=== PATIENT | male | born 1935 | race Caucasian/White ===

== ENCOUNTER 2019-04-16 22:42 | Inpatient (IN) ==
[2019-04-16] MEDS ORDERED: FUROSEMIDE 40 MG/4 ML VIAL IV STA (22:53)
[2019-04-16] MEDS ORDERED: ALBUTEROL/IPRATROPIUM 3 ML NEB RESP TX STA (22:53)
[2019-04-16 23:09] LABS: Basophils % 0.3 % (0.0-0.8); Eosinophils # 0.1 10*3/uL (0.0-0.87); Eosinophils % 1.1 % (0.00-10.9); Hematocrit 34.5 VOL% (42.0-52.0); Hemoglobin 11.7 GM/DL (14.0-18.0); Immature Granulocytes % 0.4 %; Immature Granulocytes Absolute 0.04 #; Lymphocytes # 2.2 10*3/uL (1.4-4.0); Lymphocytes % 22.4 % (21.2-54.2); Mean Corpuscular HGB Conc 33.9 GM/DL (32-36); Mean Corpuscular Volume 91.3 FL (87-102); Mean Platelet Volume 10.3 FL (9.6-12.0); Neutrophils % 68.8 % (38.7-73.9); Platelet Count 134 T/CUMM (130-400); Red Blood Count 3.78 MC/CUMM (3.8-5.5); White Blood Count 9.6 T/CUMM (4-12)
[2019-04-16] MEDS: ALBUTEROL 2.5 MG/3 ML NEB RESP TX SCH ×3 (23:12→23:55)
[2019-04-16 23:35] LABS: Albumin 3.5 G/DL (3.4-5.0); Bilirubin,Total 0.4 MG/DL (0.2-1.0); Calcium 8.5 MG/DL (8.5-10.1); Osmolality,Calculated 283.7 MOS/KG (273-304); Total Protein 6.4 G/DL (6.4-8.3)
[2019-04-17] MEDS ORDERED: ONDANSETRON 4 MG/2 ML VIAL IV PRN (02:13)
[2019-04-17] MEDS ORDERED: hydrALAZINE 20 MG/1 ML VIAL IV PRN (02:13)
[2019-04-17] MEDS ORDERED: guaiFENesin/DM ER 600-30 MG TABLET PO PRN (02:13)
[2019-04-17] MEDS ORDERED: MORPHINE 4 MG/1 ML VIAL IV PRN (02:13)
[2019-04-17] MEDS ORDERED: NICOTINE 21 MG/24 HR PATCH TRANSDERM PRN (02:13)
[2019-04-17] MEDS ORDERED: diphenhydrAMINE CAP 25 MG CAPSULE PO PRN (02:13)
[2019-04-17] MEDS ORDERED: ACETAMINOPHEN 325 MG TABLET PO PRN (02:13)
[2019-04-17 02:49] LABS: Apearance,Urine CLEAR (Clear); Bacteria,Urine Occasional /HPF (Few); Bilirubin,Urine Negative (Negative); Blood, Urine Negative (Negative); Glucose,Urine (UA) Negative (Negative); Ketones,Urine Negative (Negative); Nitrite,Urine Negative (Negative); Protein,Urine Negative; RBC,Urine <1 /HPF (0-4); Urine Color Colorless (Yellow); Urine Specific Gravity 1.004 (1.001-1.035); Urine Urobilinogen < 2.0 EU/DL (0.2-1.0); WBC,Urine <1 /HPF (0-6)
[2019-04-17 03:09] LABS: Risk Ratio 1.81; VLDL CHOLESTEROL 8.6 MG/DL
[2019-04-17] MEDS: ALBUTEROL/IPRATROPIUM 3 ML NEB RESP TX SCH ×3 (07:58→19:15)
[2019-04-17] MEDS ORDERED: carvediloL 6.25 MG TABLET PO SCH (08:00)
[2019-04-17] MEDS: RANITIDINE 150 MG TABLET PO SCH (10:04)
[2019-04-17] MEDS: cilostazoL 100 MG TABLET PO SCH ×2 (10:04→21:18)
[2019-04-17] MEDS: SPIRONOLACTONE 25 MG TABLET PO SCH (10:04)
[2019-04-17] MEDS: rOPINIRole 1 MG TABLET PO SCH (10:04)
[2019-04-17] MEDS: SIMVASTATIN 10 MG TABLET PO SCH (10:05)
[2019-04-17] MEDS: buPROPion 75 MG TABLET PO SCH ×2 (10:05→21:18)
[2019-04-17] MEDS: predniSONE 5 MG TABLET PO SCH (10:08)
[2019-04-17] MEDS: CLOPIDOGREL 75 MG TABLET PO SCH (10:08)
[2019-04-17] MEDS: FUROSEMIDE 40 MG/4 ML VIAL IV SCH ×2 (10:09→15:52)
[2019-04-17] MEDS ORDERED: FUROSEMIDE 20 MG/2 ML VIAL ONE (15:36)
[2019-04-17] MEDS ORDERED: carvediloL 3.125 MG TABLET PO SCH (21:00)
[2019-04-18] MEDS: ALBUTEROL/IPRATROPIUM 3 ML NEB RESP TX SCH ×4 (00:44→21:26)
[2019-04-18 07:46] LABS: Basophils % 0.5 % (0.0-0.8); Eosinophils # 0.1 10*3/uL (0.0-0.87); Eosinophils % 1.5 % (0.00-10.9); Hematocrit 34.8 VOL% (42.0-52.0); Hemoglobin 11.9 GM/DL (14.0-18.0); Immature Granulocytes % 0.2 %; Immature Granulocytes Absolute 0.02 #; Lymphocytes # 2.3 10*3/uL (1.4-4.0); Lymphocytes % 28.7 % (21.2-54.2); Mean Corpuscular HGB Conc 34.2 GM/DL (32-36); Mean Corpuscular Volume 89.7 FL (87-102); Mean Platelet Volume 10.4 FL (9.6-12.0); Monocytes % 10.2 % (1.7-12.7); Neutrophils % 58.9 % (38.7-73.9); Platelet Count 139 T/CUMM (130-400); Red Blood Count 3.88 MC/CUMM (3.8-5.5)
[2019-04-18 08:12] LABS: Calcium 8.7 MG/DL (8.5-10.1); Osmolality,Calculated 282.5 MOS/KG (273-304)
[2019-04-18] MEDS: predniSONE 5 MG TABLET PO SCH (09:26)
[2019-04-18] MEDS: RANITIDINE 150 MG TABLET PO SCH (09:26)
[2019-04-18] MEDS: rOPINIRole 1 MG TABLET PO SCH (09:26)
[2019-04-18] MEDS: cilostazoL 100 MG TABLET PO SCH ×2 (09:26→20:37)
[2019-04-18] MEDS: SIMVASTATIN 10 MG TABLET PO SCH (09:28)
[2019-04-18] MEDS: CLOPIDOGREL 75 MG TABLET PO SCH (09:28)
[2019-04-18] MEDS: SPIRONOLACTONE 25 MG TABLET PO SCH (09:30)
[2019-04-18] MEDS: FUROSEMIDE 40 MG/4 ML VIAL IV SCH ×2 (09:30→16:19)
[2019-04-18] MEDS: buPROPion 75 MG TABLET PO SCH ×2 (09:30→20:37)
[2019-04-19] MEDS: ALBUTEROL/IPRATROPIUM 3 ML NEB RESP TX SCH ×2 (01:37→07:10)
[2019-04-19 05:52] LABS: Basophils # 0.1 10*3/uL (0.0-0.2); Basophils % 0.6 % (0.0-0.8); Eosinophils # 0.1 10*3/uL (0.0-0.87); Eosinophils % 1.5 % (0.00-10.9); Hematocrit 35.3 VOL% (42.0-52.0); Hemoglobin 11.8 GM/DL (14.0-18.0); Immature Granulocytes % 0.2 %; Immature Granulocytes Absolute 0.02 #; Lymphocytes # 2.5 10*3/uL (1.4-4.0); Mean Corpuscular HGB Conc 33.4 GM/DL (32-36); Mean Platelet Volume 10.8 FL (9.6-12.0); Monocytes % 9.6 % (1.7-12.7); Neutrophils % 57.1 % (38.7-73.9); Platelet Count 133 T/CUMM (130-400); Red Blood Count 3.88 MC/CUMM (3.8-5.5); Red Cell Distribution Width 13.7 % (9.3-17.3); White Blood Count 8.1 T/CUMM (4-12)
[2019-04-19 06:05] LABS: Calcium 8.7 MG/DL (8.5-10.1); Osmolality,Calculated 283.5 MOS/KG (273-304)
[2019-04-19] MEDS: predniSONE 5 MG TABLET PO SCH (09:10)
[2019-04-19] MEDS: FUROSEMIDE 40 MG/4 ML VIAL IV SCH (09:10)
[2019-04-19] MEDS: SPIRONOLACTONE 25 MG TABLET PO SCH (09:11)
[2019-04-19] MEDS: CLOPIDOGREL 75 MG TABLET PO SCH (09:12)
[2019-04-19] MEDS: buPROPion 75 MG TABLET PO SCH (09:12)
[2019-04-19] MEDS: cilostazoL 100 MG TABLET PO SCH (09:12)
[2019-04-19] MEDS: rOPINIRole 1 MG TABLET PO SCH (09:12)
[2019-04-19] MEDS: SIMVASTATIN 10 MG TABLET PO SCH (09:13)
[2019-04-19] MEDS: RANITIDINE 150 MG TABLET PO SCH (09:13)
[2019-04-19 11:38] VITALS: BP 111/67
[2019-04-19] MEDS ORDERED: FUROSEMIDE 40 MG TABLET PO SCH (16:00)
== END 2019-04-19 13:02 | disposition home health service (06) | DRG 291 ==
LOC: EDUNIT# → EDBD → N.ED 22:42 → N.EDINP 04-17 02:13 → N.TELEN 04-17 03:15
PROVIDERS: ADMIT Hospitalist; ATTEND Hospitalist

== ENCOUNTER 2019-12-06 19:28 | Inpatient (IN) ==
[2019-12-06 20:44] LABS: Basophils % 0.1 % (0.0-0.8); Eosinophils % 0.2 % (0.00-10.9); Hemoglobin 11.3 GM/DL (14.0-18.0); Immature Granulocytes % 0.5 %; Immature Granulocytes Absolute 0.08 #; Lymphocytes # 1.5 10*3/uL (1.4-4.0); Lymphocytes % 9.2 % (21.2-54.2); Mean Corpuscular HGB Conc 33.2 GM/DL (32-36); Mean Corpuscular Volume 93.2 FL (87-102); Mean Platelet Volume 11.2 FL (9.6-12.0); Monocytes % 6.3 % (1.7-12.7); Neutrophils % 83.7 % (38.7-73.9); Platelet Count 118 T/CUMM (130-400); Red Blood Count 3.65 MC/CUMM (3.8-5.5); Red Cell Distribution Width 14.6 % (9.3-17.3)
[2019-12-06 20:51] LABS: INR 1.1; PT Patient Result 12.2 SECS (9.8-11.9); Partial Thromboplastin Time 22.2 SECS (23.9-33.8)
[2019-12-06 20:58] LABS: Alanine Aminotransferase 51 U/L (16-61); Albumin 3.7 G/DL (3.4-5.0); Alkaline Phosphatase 64 U/L (45-117); Aspartate Amino Transferase 53 U/L (0-37); Blood Urea Nitrogen 28 MG/DL (7-18); Calcium 8.9 MG/DL (8.5-10.1); Estimated Glom Filtration Rate 32 ML/MIN; Glucose 144 MG/DL (74-106); Osmolality,Calculated 287.4 MOS/KG (273-304); Total Protein 6.7 G/DL (6.4-8.3)
[2019-12-06 20:59] LABS: Troponin I 0.066 NG/ML (0.00-0.045)
[2019-12-06] MEDS ORDERED: SODIUM CHLORIDE 0.9% 1,000 ML IV STA (21:56)
[2019-12-06] MEDS ORDERED: cefTRIAXone 1,000 MG in SODIUM CHLORIDE 0.9% 100 ML IV STA (21:56)
[2019-12-06 22:24] LABS: Ferritin 154.1 ng/ml (26-388)
[2019-12-06] MEDS ORDERED: ONDANSETRON 4 MG/2 ML VIAL IV PRN (22:50)
[2019-12-06] MEDS ORDERED: ACETAMINOPHEN 325 MG TABLET PO PRN (22:50)
[2019-12-06] MEDS ORDERED: MAGNESIUM SULF RIDER 2 GM in PREMIX 1 EACH IV PRN (22:50)
[2019-12-06] MEDS ORDERED: GLUCAGON 1 MG VIAL IM PRN (22:50)
[2019-12-06] MEDS ORDERED: MAGNESIUM SULF RIDER 4 GM in PREMIX 1 EACH IV PRN (22:50)
[2019-12-06] MEDS ORDERED: DEXTROSE 50% 25 GM/50 ML VIAL IV PRN (22:50)
[2019-12-06] MEDS ORDERED: ENOXAPARIN 60 MG/0.6 ML SYRINGE SUBCUT SCH (23:00)
[2019-12-06] MEDS ORDERED: AZITHROMYCIN INJ 500 MG in SODIUM CHLORIDE 0.9% 250 ML IV SCH (23:00)
[2019-12-06] MEDS ORDERED: MELOXICAM 7.5 MG TABLET PO PRN (23:14)
[2019-12-07] MEDS: ALBUTEROL/IPRATROPIUM 3 ML NEB RESP TX SCH ×5 (00:15→23:35)
[2019-12-07] MEDS ORDERED: MORPHINE 4 MG/1 ML VIAL IV PRN (00:40)
[2019-12-07 07:27] LABS: Basophils % 0.3 % (0.0-0.8); Eosinophils # 0.1 10*3/uL (0.0-0.87); Eosinophils % 0.8 % (0.00-10.9); Hematocrit 33.3 VOL% (42.0-52.0); Hemoglobin 11.1 GM/DL (14.0-18.0); Immature Granulocytes % 0.4 %; Immature Granulocytes Absolute 0.05 #; Lymphocytes # 2.4 10*3/uL (1.4-4.0); Lymphocytes % 18.5 % (21.2-54.2); Mean Corpuscular HGB Conc 33.3 GM/DL (32-36); Mean Corpuscular Volume 92.5 FL (87-102); Mean Platelet Volume 10.6 FL (9.6-12.0); Monocytes % 8.1 % (1.7-12.7); Neutrophils % 71.9 % (38.7-73.9); Platelet Count 128 T/CUMM (130-400); Red Cell Distribution Width 14.6 % (9.3-17.3); White Blood Count 13.1 T/CUMM (4-12)
[2019-12-07 07:42] LABS: Albumin 3.3 G/DL (3.4-5.0); Bilirubin,Total 0.4 MG/DL (0.2-1.0); Calcium 8.4 MG/DL (8.5-10.1); Osmolality,Calculated 288.1 MOS/KG (273-304); Total Protein 6.5 G/DL (6.4-8.3)
[2019-12-07 08:03] LABS: Anisocytosis Slight; Platelet Estimate Adequate
[2019-12-07 08:04] LABS: Macrocytosis Slight
[2019-12-07] MEDS: carvediloL 6.25 MG TABLET PO SCH ×2 (08:52→16:11)
[2019-12-07] MEDS: FUROSEMIDE 40 MG/4 ML VIAL IV SCH ×2 (08:53→16:11)
[2019-12-07] MEDS: MULTIVITAMIN (CENTRUM) TABLET PO SCH (08:53)
[2019-12-07] MEDS: PANTOPRAZOLE 40 MG TABLET PO SCH (08:54)
[2019-12-07] MEDS: buPROPion 100 MG TABLET PO SCH ×2 (08:54→20:48)
[2019-12-07] MEDS: CYANOCOBALAMIN 500 MCG TABLET PO SCH (08:55)
[2019-12-07] MEDS: SACUBITRIL/VALSARTAN 49-51 MG TABLET PO SCH ×2 (08:55→20:48)
[2019-12-07] MEDS: DICYCLOMINE 20 MG TABLET PO SCH (08:56)
[2019-12-07] MEDS: predniSONE 5 MG TABLET PO SCH (08:56)
[2019-12-07] MEDS: ASPIRIN EC 81 MG TABLET PO SCH (08:56)
[2019-12-07] MEDS ORDERED: ENOXAPARIN 60 MG/0.6 ML SYRINGE SUBCUT SCH ×2 (09:00→21:00)
[2019-12-07] MEDS: AZITHROMYCIN 250 MG TABLET PO SCH (09:53)
[2019-12-07] MEDS: cefTRIAXone 1,000 MG in SYRINGE 1 EACH IV SCH (09:54)
[2019-12-07] MEDS ORDERED: METOPROLOL TARTRATE 5 MG/5 ML VIAL IV ONE (11:00)
[2019-12-07] MEDS ORDERED: SIMVASTATIN 10 MG TABLET PO SCH (21:00)
[2019-12-07] MEDS ORDERED: rOPINIRole 1 MG TABLET PO SCH (21:00)
[2019-12-07] MEDS ORDERED: CLOPIDOGREL 75 MG TABLET PO SCH (21:00)
[2019-12-07] MEDS ORDERED: ALBUTEROL/IPRATROPIUM 3 ML NEB RESP TX PRN (23:20)
[2019-12-08 05:39] LABS: Basophils # 0.1 10*3/uL (0.0-0.2); Basophils % 0.5 % (0.0-0.8); Eosinophils # 0.2 10*3/uL (0.0-0.87); Eosinophils % 1.5 % (0.00-10.9); Hematocrit 32.9 VOL% (42.0-52.0); Hemoglobin 10.8 GM/DL (14.0-18.0); Immature Granulocytes % 0.4 %; Immature Granulocytes Absolute 0.04 #; Lymphocytes # 2.3 10*3/uL (1.4-4.0); Lymphocytes % 22.8 % (21.2-54.2); Mean Corpuscular HGB Conc 32.8 GM/DL (32-36); Mean Corpuscular Volume 92.7 FL (87-102); Mean Platelet Volume 10.8 FL (9.6-12.0); Monocytes % 9.6 % (1.7-12.7); Neutrophils % 65.2 % (38.7-73.9); Platelet Count 107 T/CUMM (130-400); Red Blood Count 3.55 MC/CUMM (3.8-5.5); Red Cell Distribution Width 14.2 % (9.3-17.3); White Blood Count 9.9 T/CUMM (4-12)
[2019-12-08 06:02] LABS: Eosinophils 6 % (0-10); Hypochromasia 1+; Lymphocytes 20 % (20-55); Ovalocytes Slight; Segmented Neutrophils 69 % (50-85); Total Cells Counted 100
[2019-12-08 06:03] LABS: Macrocytosis Slight
[2019-12-08] MEDS: ALBUTEROL/IPRATROPIUM 3 ML NEB RESP TX SCH (07:20)
[2019-12-08 07:33] LABS: Calcium 8.7 MG/DL (8.5-10.1)
[2019-12-08 07:34] LABS: Osmolality,Calculated 286.3 MOS/KG (273-304)
[2019-12-08] MEDS: CYANOCOBALAMIN 500 MCG TABLET PO SCH (08:45)
[2019-12-08] MEDS: SACUBITRIL/VALSARTAN 49-51 MG TABLET PO SCH (08:45)
[2019-12-08] MEDS: AZITHROMYCIN 250 MG TABLET PO SCH (08:45)
[2019-12-08] MEDS: cefTRIAXone 1,000 MG in SYRINGE 1 EACH IV SCH (08:46)
[2019-12-08] MEDS: MULTIVITAMIN (CENTRUM) TABLET PO SCH (08:46)
[2019-12-08] MEDS: predniSONE 5 MG TABLET PO SCH (08:46)
[2019-12-08] MEDS: ASPIRIN EC 81 MG TABLET PO SCH (08:46)
[2019-12-08] MEDS: FUROSEMIDE 40 MG/4 ML VIAL IV SCH (08:46)
[2019-12-08] MEDS: PANTOPRAZOLE 40 MG TABLET PO SCH (08:46)
[2019-12-08] MEDS: carvediloL 6.25 MG TABLET PO SCH (08:47)
[2019-12-08] MEDS: DICYCLOMINE 20 MG TABLET PO SCH (08:50)
[2019-12-08] MEDS ORDERED: ENOXAPARIN 40 MG/0.4 ML SYRINGE SUBCUT SCH ×2 (09:00)
[2019-12-08 11:33] VITALS: BP 114/49
[2019-12-08] MEDS: buPROPion 100 MG TABLET PO SCH (11:38)
== END 2019-12-08 13:38 | disposition home health service (06) | DRG 871 ==
LOC: EDBD → EDUNIT# → N.ED 19:28 → SUATTDRO 22:50 → N.EDINP 22:50 → N.5E 23:25
PROVIDERS: ADMIT Internal Medicine; ATTEND Internal Medicine

== ENCOUNTER 2020-06-10 10:48 | Observation (INO) ==
[2020-06-10] MEDS ORDERED: methylPREDNISolone SOD SUC 125 MG/2 ML VIAL IV STA (11:22)
[2020-06-10 11:50] LABS: Basophils % 0.3 % (0.0-0.8); Eosinophils # 0.2 10*3/uL (0.0-0.87); Eosinophils % 1.6 % (0.00-10.9); Hematocrit 39.8 VOL% (42.0-52.0); Hemoglobin 12.9 GM/DL (14.0-18.0); Immature Granulocytes % 0.5 %; Immature Granulocytes Absolute 0.05 #; Lymphocytes # 1.2 10*3/uL (1.4-4.0); Lymphocytes % 11.7 % (21.2-54.2); Mean Corpuscular HGB Conc 32.4 GM/DL (32-36); Mean Corpuscular Volume 90.7 FL (87-102); Mean Platelet Volume 10.4 FL (9.6-12.0); Monocytes % 4.4 % (1.7-12.7); Neutrophils % 81.5 % (38.7-73.9); Platelet Count 141 T/CUMM (130-400); Red Blood Count 4.39 MC/CUMM (3.8-5.5); Red Cell Distribution Width 14.4 % (9.3-17.3); White Blood Count 10.2 T/CUMM (4-12)
[2020-06-10 12:08] LABS: ABG Base Excess 3.7 MMOL/L (-2.5-2.5); ABG HCO3 30.3 MMOL/L (20-26); ABG Oxygen Saturation 27.4 % (95-100); ABG PCO2 54.9 MM HG (35-48)
[2020-06-10 12:09] LABS: ABG PO2 22.8 MM HG (80-95)
[2020-06-10 12:11] LABS: Albumin 3.9 G/DL (3.4-5.0); Bilirubin,Total 0.8 MG/DL (0.2-1.0); Calcium 8.4 MG/DL (8.5-10.1); Osmolality,Calculated 292.3 MOS/KG (273-304); Potassium 4.4 MMOL/L (3.5-5.1); Total Protein 7.3 G/DL (6.4-8.2)
[2020-06-10 12:22] LABS: Hypochromasia Slight; Platelet Estimate Adequate
[2020-06-10] MEDS ORDERED: DEXTROSE 50% 25 GM/50 ML VIAL IV PRN (14:36)
[2020-06-10] MEDS ORDERED: ONDANSETRON 4 MG/2 ML VIAL IV PRN (14:36)
[2020-06-10] MEDS ORDERED: GLUCAGON 1 MG VIAL IM PRN (14:36)
[2020-06-10] MEDS ORDERED: DOCUSATE SODIUM 100 MG CAPSULE PO PRN (14:36)
[2020-06-10] MEDS: ENOXAPARIN 30 MG/0.3 ML SYRINGE SUBCUT SCH (17:43)
[2020-06-10] MEDS: FUROSEMIDE 40 MG/4 ML VIAL IV SCH (17:44)
[2020-06-10] MEDS: methylPREDNISolone SOD SUC 40 MG/1 ML VIAL IV SCH (17:48)
[2020-06-10] MEDS: ALBUTEROL/IPRATROPIUM 3 ML NEB RESP TX SCH (19:25)
[2020-06-10] MEDS: carvediloL 6.25 MG TABLET PO SCH (20:16)
[2020-06-10] MEDS: buPROPion 75 MG TABLET PO SCH (20:16)
[2020-06-10] MEDS ORDERED: rOPINIRole 1 MG TABLET PO SCH (21:00)
[2020-06-10] MEDS ORDERED: SIMVASTATIN 10 MG TABLET PO SCH (21:00)
[2020-06-10] MEDS ORDERED: CLOPIDOGREL 75 MG TABLET PO SCH (21:00)
[2020-06-10] MEDS ORDERED: clonazePAM 0.5 MG TABLET PO SCH (21:00)
[2020-06-11] MEDS: FUROSEMIDE 40 MG/4 ML VIAL IV SCH ×3 (00:07→16:13)
[2020-06-11] MEDS: methylPREDNISolone SOD SUC 40 MG/1 ML VIAL IV SCH ×3 (00:08→16:13)
[2020-06-11] MEDS: ALBUTEROL/IPRATROPIUM 3 ML NEB RESP TX SCH ×3 (00:33→13:02)
[2020-06-11 05:54] LABS: Hemoglobin 11.1 GM/DL (14.0-18.0); Immature Granulocytes % 0.8 %; Immature Granulocytes Absolute 0.04 #; Lymphocytes # 0.8 10*3/uL (1.4-4.0); Lymphocytes % 15.4 % (21.2-54.2); Mean Corpuscular HGB Conc 32.6 GM/DL (32-36); Mean Corpuscular Volume 89.2 FL (87-102); Mean Platelet Volume 11.3 FL (9.6-12.0); Monocytes % 0.8 % (1.7-12.7); Platelet Count 117 T/CUMM (130-400); Red Blood Count 3.81 MC/CUMM (3.8-5.5); Red Cell Distribution Width 14.1 % (9.3-17.3); White Blood Count 4.9 T/CUMM (4-12)
[2020-06-11 06:03] LABS: Calcium 8.4 MG/DL (8.5-10.1); Osmolality,Calculated 287.7 MOS/KG (273-304); Potassium 3.4 MMOL/L (3.5-5.1)
[2020-06-11] MEDS ORDERED: POTASSIUM CHLORIDE 20 MEQ TABLET PO PRN (07:19)
[2020-06-11] MEDS: carvediloL 6.25 MG TABLET PO SCH (08:22)
[2020-06-11] MEDS: buPROPion 75 MG TABLET PO SCH (08:23)
[2020-06-11] MEDS ORDERED: SACUBITRIL/VALSARTAN 49-51 MG TABLET PO SCH (09:00)
[2020-06-11] MEDS ORDERED: ASPIRIN EC 81 MG TABLET PO SCH (09:00)
[2020-06-11] MEDS ORDERED: DICYCLOMINE 10 MG CAPSULE PO SCH (09:00)
[2020-06-11] MEDS ORDERED: PANTOPRAZOLE 40 MG TABLET PO SCH (09:00)
[2020-06-11] MEDS ORDERED: CYANOCOBALAMIN 500 MCG TABLET PO SCH (09:00)
[2020-06-11] MEDS: POTASSIUM CHLORIDE 20 MEQ TABLET PO PRN ×2 (10:51→13:18)
[2020-06-11] MEDS: ENOXAPARIN 30 MG/0.3 ML SYRINGE SUBCUT SCH (15:26)
[2020-06-11 16:49] VITALS: BP 107/51
== END 2020-06-11 17:45 | disposition home or self-care (01) ==
LOC: EDBD → EDUNIT# → N.EDINP 10:48 → N.ED 10:48 → N.TELES 18:15
PROVIDERS: ADMIT Hospitalist; ATTEND Hospitalist

== ENCOUNTER 2020-12-21 22:52 | Observation (INO) ==
[2020-12-21 23:30] LABS: Basophils % 0.3 % (0.0-0.8); Eosinophils # 0.1 10*3/uL (0.0-0.87); Eosinophils % 0.8 % (0.00-10.9); Hematocrit 36.2 VOL% (42.0-52.0); Hemoglobin 11.9 GM/DL (14.0-18.0); Immature Granulocytes % 0.4 %; Immature Granulocytes Absolute 0.05 #; Lymphocytes # 1.2 10*3/uL (1.4-4.0); Lymphocytes % 9.7 % (21.2-54.2); Mean Corpuscular HGB Conc 32.9 GM/DL (32-36); Mean Corpuscular Volume 90.5 FL (87-102); Mean Platelet Volume 9.5 FL (9.6-12.0); Monocytes % 6.5 % (1.7-12.7); Neutrophils % 82.3 % (38.7-73.9); Platelet Count 146 T/CUMM (130-400); Red Cell Distribution Width 14.2 % (9.3-17.3); White Blood Count 11.9 T/CUMM (4-12)
[2020-12-21 23:48] LABS: Albumin 3.3 G/DL (3.4-5.0); Bilirubin,Total 0.6 MG/DL (0.20-1.00); Calcium 8.5 MG/DL (8.5-10.1); Osmolality,Calculated 286.5 MOS/KG (273-304); Potassium 3.2 MMOL/L (3.5-5.1); Total Protein 6.8 G/DL (6.4-8.2)
[2020-12-21] MEDS ORDERED: FUROSEMIDE 40 MG/4 ML VIAL IV STA ×2 (23:59)
[2020-12-22 00:04] LABS: INR 1.1; PT Patient Result 12.2 SECS (10.5-12.0)
[2020-12-22] MEDS ORDERED: POTASSIUM CHLORIDE 20 MEQ TABLET PO STA (00:20)
[2020-12-22] MEDS ORDERED: POTASSIUM CHLORIDE 20 MEQ TABLET PO ONE (00:21)
[2020-12-22] MEDS ORDERED: FUROSEMIDE 40 MG/4 ML VIAL IV STA (00:21)
[2020-12-22] MEDS ORDERED: DEXTROSE 50% 25 GM/50 ML VIAL IV PRN (01:00)
[2020-12-22] MEDS ORDERED: GLUCAGON 1 MG VIAL IM PRN (01:00)
[2020-12-22] MEDS ORDERED: ACETAMINOPHEN 325 MG TABLET PO PRN (01:02)
[2020-12-22] MEDS ORDERED: ONDANSETRON 4 MG/2 ML VIAL IV PRN (01:02)
[2020-12-22] MEDS ORDERED: NICOTINE 21 MG/24 HR PATCH TRANSDERM PRN (01:02)
[2020-12-22] MEDS ORDERED: SIMETHICONE CHEW 125 MG TABLET PO PRN (01:02)
[2020-12-22] MEDS ORDERED: guaiFENesin/DM ER 600-30 MG TABLET PO PRN (01:02)
[2020-12-22] MEDS ORDERED: MAGNESIUM SULF RIDER 4 GM/100 ML PREMIX IV PRN (01:14)
[2020-12-22] MEDS ORDERED: MAGNESIUM SULF RIDER 2 GM/50 ML PREMIX IV PRN (01:14)
[2020-12-22] MEDS ORDERED: POTASSIUM CHLORIDE RIDER 10 MEQ/100 ML PREMIX IV PRN (01:14)
[2020-12-22] MEDS ORDERED: methylPREDNISolone SOD SUC 125 MG/2 ML VIAL IV SCH (02:30)
[2020-12-22] MEDS ORDERED: PNEUMOCOCCAL VACCINE (13 VALENT) 0.5 ML SYRINGE IM ONE (03:06)
[2020-12-22 03:17] LABS: Basophils % 0.3 % (0.0-0.8); Eosinophils % 0.4 % (0.00-10.9); Hematocrit 35.6 VOL% (42.0-52.0); Hemoglobin 11.6 GM/DL (14.0-18.0); Immature Granulocytes % 0.4 %; Immature Granulocytes Absolute 0.04 #; Lymphocytes # 1.2 10*3/uL (1.4-4.0); Lymphocytes % 12.1 % (21.2-54.2); Mean Corpuscular HGB Conc 32.6 GM/DL (32-36); Mean Corpuscular Volume 91.3 FL (87-102); Mean Platelet Volume 9.3 FL (9.6-12.0); Monocytes % 6.6 % (1.7-12.7); Neutrophils % 80.2 % (38.7-73.9); Platelet Count 143 T/CUMM (130-400); Red Cell Distribution Width 14.3 % (9.3-17.3); White Blood Count 10.2 T/CUMM (4-12)
[2020-12-22 04:14] LABS: Calcium 8.7 MG/DL (8.5-10.1); Osmolality,Calculated 286.4 MOS/KG (273-304); Potassium 3.7 MMOL/L (3.5-5.1)
[2020-12-22] MEDS ORDERED: ALBUTEROL 2.5 MG/3 ML NEB RESP TX SCH (07:00)
[2020-12-22] MEDS: ALBUTEROL/IPRATROPIUM 3 ML NEB RESP TX SCH ×3 (08:30→20:04)
[2020-12-22] MEDS: FUROSEMIDE 40 MG/4 ML VIAL IV SCH ×2 (08:36→15:40)
[2020-12-22] MEDS: PANTOPRAZOLE 40 MG TABLET PO SCH (08:37)
[2020-12-22] MEDS: ASPIRIN EC 81 MG TABLET PO SCH (08:37)
[2020-12-22] MEDS: predniSONE 10 MG TABLET PO SCH ×2 (09:40→20:13)
[2020-12-22] MEDS: DOCUSATE SODIUM 100 MG CAPSULE PO SCH ×2 (09:40→20:12)
[2020-12-22] MEDS: carvediloL 6.25 MG TABLET PO SCH ×2 (09:41→20:12)
[2020-12-22] MEDS: SACUBITRIL/VALSARTAN 49-51 MG TABLET PO SCH (09:41)
[2020-12-22] MEDS ORDERED: LEVOFLOXACIN INJ 500 MG/100 ML PREMIX IV ONE (13:00)
[2020-12-22] MEDS: CLOPIDOGREL 75 MG TABLET PO SCH (20:12)
[2020-12-22] MEDS: clonazePAM 0.5 MG TABLET PO SCH (20:12)
[2020-12-22] MEDS: SIMVASTATIN 10 MG TABLET PO SCH (20:12)
[2020-12-23] MEDS: ALBUTEROL/IPRATROPIUM 3 ML NEB RESP TX SCH ×2 (01:39→07:00)
[2020-12-23 05:08] LABS: Basophils % 0.4 % (0.0-0.8); Eosinophils # 0.1 10*3/uL (0.0-0.87); Eosinophils % 1.2 % (0.00-10.9); Hemoglobin 11.3 GM/DL (14.0-18.0); Immature Granulocytes % 0.4 %; Immature Granulocytes Absolute 0.03 #; Lymphocytes # 0.9 10*3/uL (1.4-4.0); Lymphocytes % 11.2 % (21.2-54.2); Mean Corpuscular HGB Conc 33.2 GM/DL (32-36); Mean Corpuscular Volume 91.6 FL (87-102); Mean Platelet Volume 10.8 FL (9.6-12.0); Monocytes % 5.7 % (1.7-12.7); Neutrophils % 81.1 % (38.7-73.9); Platelet Count 144 T/CUMM (130-400); Red Blood Count 3.71 MC/CUMM (3.8-5.5); Red Cell Distribution Width 14.4 % (9.3-17.3); White Blood Count 7.7 T/CUMM (4-12)
[2020-12-23 05:42] LABS: Calcium 8.9 MG/DL (8.5-10.1); Osmolality,Calculated 289.3 MOS/KG (273-304); Potassium 4.4 MMOL/L (3.5-5.1)
[2020-12-23] MEDS ORDERED: ALBUTEROL/IPRATROPIUM 3 ML NEB RESP TX PRN (07:00)
[2020-12-23] MEDS: DOCUSATE SODIUM 100 MG CAPSULE PO SCH ×2 (09:41→20:24)
[2020-12-23] MEDS: ASPIRIN EC 81 MG TABLET PO SCH (09:41)
[2020-12-23] MEDS: PANTOPRAZOLE 40 MG TABLET PO SCH (09:41)
[2020-12-23] MEDS: carvediloL 6.25 MG TABLET PO SCH ×2 (09:41→20:24)
[2020-12-23] MEDS: SACUBITRIL/VALSARTAN 49-51 MG TABLET PO SCH (09:41)
[2020-12-23] MEDS: predniSONE 10 MG TABLET PO SCH ×2 (09:42→20:24)
[2020-12-23] MEDS: FUROSEMIDE 40 MG/4 ML VIAL IV SCH ×2 (09:46→16:55)
[2020-12-23] MEDS: LEVOFLOXACIN INJ 250 MG/50 ML PREMIX IV SCH (09:47)
[2020-12-23] MEDS: SIMVASTATIN 10 MG TABLET PO SCH (20:24)
[2020-12-23] MEDS: CLOPIDOGREL 75 MG TABLET PO SCH (20:24)
[2020-12-23] MEDS: clonazePAM 0.5 MG TABLET PO SCH (20:24)
[2020-12-23] MEDS: buPROPion 75 MG TABLET PO SCH (23:40)
[2020-12-24 07:02] LABS: Basophils % 0.2 % (0.0-0.8); Eosinophils % 0.3 % (0.00-10.9); Hemoglobin 11.9 GM/DL (14.0-18.0); Immature Granulocytes % 0.3 %; Immature Granulocytes Absolute 0.03 #; Lymphocytes # 1.6 10*3/uL (1.4-4.0); Lymphocytes % 17.7 % (21.2-54.2); Mean Corpuscular HGB Conc 33.1 GM/DL (32-36); Mean Corpuscular Volume 90.7 FL (87-102); Mean Platelet Volume 10.1 FL (9.6-12.0); Monocytes % 5.3 % (1.7-12.7); Neutrophils % 76.2 % (38.7-73.9); Platelet Count 158 T/CUMM (130-400); Red Blood Count 3.97 MC/CUMM (3.8-5.5)
[2020-12-24 07:18] LABS: Calcium 8.9 MG/DL (8.5-10.1); Osmolality,Calculated 290.4 MOS/KG (273-304); Potassium 3.9 MMOL/L (3.5-5.1)
[2020-12-24] MEDS: predniSONE 10 MG TABLET PO SCH (09:58)
[2020-12-24] MEDS: DOCUSATE SODIUM 100 MG CAPSULE PO SCH (09:58)
[2020-12-24] MEDS: carvediloL 6.25 MG TABLET PO SCH (09:58)
[2020-12-24] MEDS: ASPIRIN EC 81 MG TABLET PO SCH (09:59)
[2020-12-24] MEDS: SACUBITRIL/VALSARTAN 49-51 MG TABLET PO SCH (09:59)
[2020-12-24] MEDS: PANTOPRAZOLE 40 MG TABLET PO SCH (09:59)
[2020-12-24] MEDS: LEVOFLOXACIN INJ 250 MG/50 ML PREMIX IV SCH (09:59)
[2020-12-24] MEDS: buPROPion 75 MG TABLET PO SCH (09:59)
[2020-12-24] MEDS: FUROSEMIDE 40 MG/4 ML VIAL IV SCH (10:02)
[2020-12-24 12:48] VITALS: BP 105/53
== END 2020-12-24 13:05 | disposition home or self-care (01) ==
LOC: N.ED 22:52 → N.EDINP 22:52 → N.TELES 12-22 02:22
PROVIDERS: ADMIT Hospitalist; ATTEND Hospitalist

== ENCOUNTER 2021-01-18 17:12 | Inpatient (IN) ==
[2021-01-18] MEDS ORDERED: methylPREDNISolone SOD SUC 125 MG/2 ML VIAL IV STA (17:21)
[2021-01-18 17:44] LABS: Basophils % 0.3 % (0.0-0.8); Eosinophils # 0.2 10*3/uL (0.0-0.87); Eosinophils % 1.7 % (0.00-10.9); Hematocrit 37.8 VOL% (42.0-52.0); Hemoglobin 12.5 GM/DL (14.0-18.0); Immature Granulocytes % 0.4 %; Immature Granulocytes Absolute 0.05 #; Lymphocytes # 1.3 10*3/uL (1.4-4.0); Lymphocytes % 10.3 % (21.2-54.2); Mean Corpuscular HGB Conc 33.1 GM/DL (32-36); Mean Corpuscular Volume 91.3 FL (87-102); Mean Platelet Volume 10.5 FL (9.6-12.0); Monocytes % 4.8 % (1.7-12.7); Neutrophils % 82.5 % (38.7-73.9); Platelet Count 134 T/CUMM (130-400); Red Blood Count 4.14 MC/CUMM (3.8-5.5); Red Cell Distribution Width 13.8 % (9.3-17.3); White Blood Count 12.8 T/CUMM (4-12)
[2021-01-18 18:00] LABS: ABG Base Excess 0.3 MMOL/L (-2.5-2.5); ABG HCO3 24.6 MMOL/L (20-26); ABG PH 7.382 (7.35-7.45); ABG PO2 75.4 MM HG (80-95); ABG TCO2 22.7 MMOL/L (23-27)
[2021-01-18 18:11] LABS: Albumin 3.5 G/DL (3.4-5.0); Bilirubin,Total 0.8 MG/DL (0.20-1.00); Calcium 8.6 MG/DL (8.5-10.1); Osmolality,Calculated 293.4 MOS/KG (273-304); Potassium 3.8 MMOL/L (3.5-5.1); Total Protein 6.6 G/DL (6.4-8.2)
[2021-01-18] MEDS ORDERED: DEXTROSE 50% 25 GM/50 ML VIAL IV PRN ×2 (20:26→20:37)
[2021-01-18] MEDS ORDERED: GLUCAGON 1 MG VIAL IM PRN ×2 (20:26→20:37)
[2021-01-18] MEDS ORDERED: ACETAMINOPHEN 325 MG TABLET PO PRN (20:30)
[2021-01-18] MEDS ORDERED: ONDANSETRON 4 MG/2 ML VIAL IV PRN (20:30)
[2021-01-18] MEDS ORDERED: DOCUSATE SODIUM 100 MG CAPSULE PO PRN (20:30)
[2021-01-18] MEDS ORDERED: guaiFENesin/DM ER 600-30 MG TABLET PO PRN (20:30)
[2021-01-18 23:14] LABS: Bacteria,Urine Occasional /HPF (Few); Bilirubin,Urine Negative (Negative); Blood, Urine Negative (Negative); Glucose,Urine (UA) Negative (Negative); Hyaline Casts,Urine 17 /LPF (0-3); Ketones,Urine Negative (Negative); Mucus,Urine Occasional /LPF (Occasional); Nitrite,Urine Negative (Negative); Protein,Urine Negative; RBC,Urine 2 /HPF (0-4); Urine Appearance Slightly Hazy (Clear); Urine Color Yellow (Yellow); Urine Urobilinogen < 2.0 EU/DL (0.2-1.0)
[2021-01-19] MEDS: FUROSEMIDE 40 MG/4 ML VIAL IV SCH ×3 (00:28→18:04)
[2021-01-19] MEDS: HEPARIN 5,000 UNIT/1 ML VIAL SUBCUT SCH ×3 (00:31→21:11)
[2021-01-19] MEDS: cefTRIAXone 1,000 MG in SODIUM CHLORIDE 0.9% 100 ML IV SCH ×2 (00:41→21:11)
[2021-01-19] MEDS: carvediloL 6.25 MG TABLET PO SCH ×3 (00:43→21:10)
[2021-01-19] MEDS: rOPINIRole 1 MG TABLET PO SCH ×2 (00:54→21:09)
[2021-01-19] MEDS: clonazePAM 0.5 MG TABLET PO SCH ×2 (00:54→21:10)
[2021-01-19] MEDS: CLOPIDOGREL 75 MG TABLET PO SCH ×2 (00:54→21:10)
[2021-01-19] MEDS: SIMVASTATIN 10 MG TABLET PO SCH ×2 (01:43→21:10)
[2021-01-19] MEDS: INSULIN REGULAR 100 UNIT/ML SUBCUT SCH ×5 (02:27→21:10)
[2021-01-19] MEDS: buPROPion 75 MG TABLET PO SCH ×3 (02:28→21:10)
[2021-01-19] MEDS: methylPREDNISolone SOD SUC 40 MG/1 ML VIAL IV SCH ×2 (06:19→18:08)
[2021-01-19 06:37] LABS: Hematocrit 36.3 VOL% (42.0-52.0); Hemoglobin 11.7 GM/DL (14.0-18.0); Immature Granulocytes % 0.2 %; Immature Granulocytes Absolute 0.01 #; Lymphocytes # 0.7 10*3/uL (1.4-4.0); Lymphocytes % 16.9 % (21.2-54.2); Mean Corpuscular HGB Conc 32.2 GM/DL (32-36); Mean Corpuscular Volume 90.8 FL (87-102); Mean Platelet Volume 11.1 FL (9.6-12.0); Monocytes % 1.1 % (1.7-12.7); Neutrophils % 81.8 % (38.7-73.9); Platelet Count 113 T/CUMM (130-400); Red Cell Distribution Width 13.8 % (9.3-17.3); White Blood Count 4.4 T/CUMM (4-12)
[2021-01-19 07:17] LABS: Calcium 8.8 MG/DL (8.5-10.1); Potassium 3.5 MMOL/L (3.5-5.1); Thyroid Stimulating Hormone 0.428 uIU/ml (0.358-3.74)
[2021-01-19 07:24] LABS: Band Neutrophils 3 % (0-10); Lymphocytes 21 % (20-55); Platelet Estimate Adequate; Segmented Neutrophils 72 % (50-85); Total Cells Counted 100
[2021-01-19] MEDS ORDERED: NON-FORMULARY MEDICATION (Sacubitril-Valsartan [Entresto] 24-26 mg Tablet) PO SCH (09:00)
[2021-01-19] MEDS: ASPIRIN EC 81 MG TABLET PO SCH (10:20)
[2021-01-19] MEDS: AZITHROMYCIN 250 MG TABLET PO SCH (10:21)
[2021-01-19] MEDS: PANTOPRAZOLE 40 MG TABLET PO SCH (10:21)
[2021-01-19] MEDS: SACUBITRIL/VALSARTAN 49-51 MG TABLET PO SCH (10:22)
[2021-01-19] MEDS: ALBUTEROL/IPRATROPIUM 3 ML NEB RESP TX PRN (13:10)
[2021-01-20] MEDS: methylPREDNISolone SOD SUC 40 MG/1 ML VIAL IV SCH ×3 (05:39→22:54)
[2021-01-20 06:34] LABS: Calcium 8.8 MG/DL (8.5-10.1); Osmolality,Calculated 294.4 MOS/KG (273-304); Potassium 4.1 MMOL/L (3.5-5.1)
[2021-01-20] MEDS: INSULIN REGULAR 100 UNIT/ML SUBCUT SCH ×4 (09:01→20:55)
[2021-01-20] MEDS: AZITHROMYCIN 250 MG TABLET PO SCH (09:02)
[2021-01-20] MEDS: buPROPion 75 MG TABLET PO SCH ×2 (09:02→20:43)
[2021-01-20] MEDS: PANTOPRAZOLE 40 MG TABLET PO SCH (09:02)
[2021-01-20] MEDS: HEPARIN 5,000 UNIT/1 ML VIAL SUBCUT SCH ×2 (09:03→20:43)
[2021-01-20] MEDS: FUROSEMIDE 40 MG/4 ML VIAL IV SCH ×2 (09:03→15:49)
[2021-01-20] MEDS: carvediloL 6.25 MG TABLET PO SCH ×2 (09:03→20:43)
[2021-01-20] MEDS: SACUBITRIL/VALSARTAN 49-51 MG TABLET PO SCH (09:03)
[2021-01-20] MEDS: ASPIRIN EC 81 MG TABLET PO SCH (09:04)
[2021-01-20] MEDS: ALBUTEROL/IPRATROPIUM 3 ML NEB RESP TX PRN ×2 (10:08→13:52)
[2021-01-20] MEDS ORDERED: methylPREDNISolone SOD SUC 40 MG/1 ML VIAL IV ONE (13:51)
[2021-01-20] MEDS ORDERED: MORPHINE 2 MG/1 ML SYRINGE IV ONE (13:53)
[2021-01-20] MEDS ORDERED: MORPHINE 2 MG/1 ML SYRINGE ONE (13:54)
[2021-01-20] MEDS ORDERED: FUROSEMIDE 40 MG/4 ML VIAL IV ONE ×2 (13:57→15:10)
[2021-01-20] MEDS: ALBUTEROL/IPRATROPIUM 3 ML NEB RESP TX SCH ×2 (14:54→19:00)
[2021-01-20 15:07] LABS: ABG Base Excess -3.9 MMOL/L (-2.5-2.5); ABG HCO3 21.1 MMOL/L (20-26); ABG Oxygen Saturation 91.9 % (95-100); ABG PCO2 60.8 MM HG (35-48); ABG PH 7.228 (7.35-7.45); ABG PO2 78.2 MM HG (80-95); ABG TCO2 22.6 MMOL/L (23-27)
[2021-01-20] MEDS ORDERED: DIGOXIN 0.5 MG/2 ML AMP IV ONE ×2 (15:10→16:00)
[2021-01-20 15:12] LABS: Albumin 3.6 G/DL (3.4-5.0); Bilirubin,Total 0.5 MG/DL (0.20-1.00); Calcium 8.7 MG/DL (8.5-10.1); Osmolality,Calculated 294.1 MOS/KG (273-304); Potassium 4.8 MMOL/L (3.5-5.1); Total Protein 7.3 G/DL (6.4-8.2)
[2021-01-20] MEDS: PIPERACILLIN/TAZOBACTAM 3,375 MG in SODIUM CHLORIDE 0.9% 100 ML IV SCH ×2 (16:05→22:53)
[2021-01-20] MEDS: rOPINIRole 1 MG TABLET PO SCH (20:43)
[2021-01-20] MEDS: clonazePAM 0.5 MG TABLET PO SCH (20:43)
[2021-01-20] MEDS: CLOPIDOGREL 75 MG TABLET PO SCH (20:43)
[2021-01-20] MEDS: SIMVASTATIN 10 MG TABLET PO SCH (20:43)
[2021-01-21] MEDS: ALBUTEROL/IPRATROPIUM 3 ML NEB RESP TX SCH ×4 (01:00→20:20)
[2021-01-21] MEDS: PIPERACILLIN/TAZOBACTAM 3,375 MG in SODIUM CHLORIDE 0.9% 100 ML IV SCH ×3 (05:49→22:21)
[2021-01-21 06:32] LABS: Basophils % 0.1 % (0.0-0.8); Hematocrit 36.5 VOL% (42.0-52.0); Immature Granulocytes % 0.7 %; Lymphocytes # 0.8 10*3/uL (1.4-4.0); Lymphocytes % 5.5 % (21.2-54.2); Mean Corpuscular HGB Conc 32.9 GM/DL (32-36); Mean Platelet Volume 10.7 FL (9.6-12.0); Monocytes % 2.2 % (1.7-12.7); Neutrophils % 91.5 % (38.7-73.9); Platelet Count 126 T/CUMM (130-400); Red Blood Count 4.01 MC/CUMM (3.8-5.5); Red Cell Distribution Width 13.9 % (9.3-17.3); White Blood Count 13.9 T/CUMM (4-12)
[2021-01-21 07:01] LABS: Calcium 8.6 MG/DL (8.5-10.1); Osmolality,Calculated 298.3 MOS/KG (273-304)
[2021-01-21] MEDS: SACUBITRIL/VALSARTAN 49-51 MG TABLET PO SCH (08:09)
[2021-01-21] MEDS: FUROSEMIDE 40 MG/4 ML VIAL IV SCH ×2 (08:09→15:42)
[2021-01-21] MEDS: buPROPion 75 MG TABLET PO SCH ×2 (08:10→22:22)
[2021-01-21] MEDS: ASPIRIN EC 81 MG TABLET PO SCH (08:10)
[2021-01-21] MEDS: PANTOPRAZOLE 40 MG TABLET PO SCH (08:10)
[2021-01-21] MEDS: HEPARIN 5,000 UNIT/1 ML VIAL SUBCUT SCH ×2 (08:10→22:23)
[2021-01-21] MEDS: carvediloL 6.25 MG TABLET PO SCH ×2 (08:10→22:22)
[2021-01-21] MEDS: methylPREDNISolone SOD SUC 40 MG/1 ML VIAL IV SCH ×3 (08:11→22:18)
[2021-01-21] MEDS: INSULIN REGULAR 100 UNIT/ML SUBCUT SCH ×4 (08:42→21:38)
[2021-01-21] MEDS: rOPINIRole 1 MG TABLET PO SCH (22:22)
[2021-01-21] MEDS: CLOPIDOGREL 75 MG TABLET PO SCH (22:22)
[2021-01-21] MEDS: SIMVASTATIN 10 MG TABLET PO SCH (22:22)
[2021-01-21] MEDS: clonazePAM 0.5 MG TABLET PO SCH (22:22)
[2021-01-22] MEDS: ALBUTEROL/IPRATROPIUM 3 ML NEB RESP TX SCH ×4 (00:45→19:11)
[2021-01-22 05:32] LABS: Hematocrit 36.3 VOL% (42.0-52.0); Hemoglobin 11.8 GM/DL (14.0-18.0); Immature Granulocytes Absolute 0.11 #; Lymphocytes # 0.5 10*3/uL (1.4-4.0); Lymphocytes % 4.5 % (21.2-54.2); Mean Corpuscular HGB Conc 32.5 GM/DL (32-36); Mean Corpuscular Volume 90.3 FL (87-102); Mean Platelet Volume 10.7 FL (9.6-12.0); Monocytes % 2.9 % (1.7-12.7); Neutrophils % 91.6 % (38.7-73.9); Platelet Count 129 T/CUMM (130-400); Red Blood Count 4.02 MC/CUMM (3.8-5.5); Red Cell Distribution Width 13.7 % (9.3-17.3); White Blood Count 11.4 T/CUMM (4-12)
[2021-01-22 05:53] LABS: Albumin 3.1 G/DL (3.4-5.0); Bilirubin,Total 0.9 MG/DL (0.20-1.00); Calcium 8.5 MG/DL (8.5-10.1); Osmolality,Calculated 303.3 MOS/KG (273-304); Potassium 3.8 MMOL/L (3.5-5.1); Total Protein 6.2 G/DL (6.4-8.2)
[2021-01-22 05:59] LABS: Band Neutrophils 1 % (0-10); Hypochromasia Slight; Lymphocytes 3 % (20-55); Microcytosis Slight; Platelet Estimate Normal; Segmented Neutrophils 95 % (50-85); Total Cells Counted 100
[2021-01-22] MEDS: PIPERACILLIN/TAZOBACTAM 3,375 MG in SODIUM CHLORIDE 0.9% 100 ML IV SCH ×2 (06:07→16:23)
[2021-01-22] MEDS: buPROPion 75 MG TABLET PO SCH ×2 (09:05→21:18)
[2021-01-22] MEDS: ASPIRIN EC 81 MG TABLET PO SCH (09:06)
[2021-01-22] MEDS: FUROSEMIDE 40 MG/4 ML VIAL IV SCH ×2 (09:06→16:23)
[2021-01-22] MEDS: methylPREDNISolone SOD SUC 40 MG/1 ML VIAL IV SCH ×2 (09:06→16:24)
[2021-01-22] MEDS: HEPARIN 5,000 UNIT/1 ML VIAL SUBCUT SCH ×2 (09:07→16:24)
[2021-01-22] MEDS: INSULIN REGULAR 100 UNIT/ML SUBCUT SCH ×4 (09:07→21:17)
[2021-01-22] MEDS: carvediloL 6.25 MG TABLET PO SCH (09:12)
[2021-01-22] MEDS: SACUBITRIL/VALSARTAN 49-51 MG TABLET PO SCH (09:12)
[2021-01-22] MEDS: PANTOPRAZOLE 40 MG TABLET PO SCH (11:45)
[2021-01-22] MEDS: carvediloL 12.5 MG TABLET PO SCH (16:22)
[2021-01-22] MEDS: SIMVASTATIN 10 MG TABLET PO SCH (21:18)
[2021-01-22] MEDS: clonazePAM 0.5 MG TABLET PO SCH (21:19)
[2021-01-22] MEDS: CLOPIDOGREL 75 MG TABLET PO SCH (21:19)
[2021-01-22] MEDS: rOPINIRole 1 MG TABLET PO SCH (21:19)
[2021-01-23] MEDS: ALBUTEROL/IPRATROPIUM 3 ML NEB RESP TX SCH ×2 (00:08→07:20)
[2021-01-23] MEDS: HEPARIN 5,000 UNIT/1 ML VIAL SUBCUT SCH ×2 (01:23→09:27)
[2021-01-23] MEDS: methylPREDNISolone SOD SUC 40 MG/1 ML VIAL IV SCH ×2 (01:23→09:24)
[2021-01-23] MEDS: PIPERACILLIN/TAZOBACTAM 3,375 MG in SODIUM CHLORIDE 0.9% 100 ML IV SCH ×2 (01:29→09:28)
[2021-01-23 05:35] LABS: Basophils % 0.1 % (0.0-0.8); Hematocrit 38.1 VOL% (42.0-52.0); Hemoglobin 12.7 GM/DL (14.0-18.0); Immature Granulocytes % 0.7 %; Immature Granulocytes Absolute 0.07 #; Lymphocytes # 0.6 10*3/uL (1.4-4.0); Lymphocytes % 5.4 % (21.2-54.2); Mean Corpuscular HGB Conc 33.3 GM/DL (32-36); Mean Corpuscular Volume 89.6 FL (87-102); Mean Platelet Volume 11.2 FL (9.6-12.0); Neutrophils % 90.8 % (38.7-73.9); Platelet Count 142 T/CUMM (130-400); Red Blood Count 4.25 MC/CUMM (3.8-5.5); Red Cell Distribution Width 13.8 % (9.3-17.3); White Blood Count 10.5 T/CUMM (4-12)
[2021-01-23 05:51] LABS: Calcium 8.1 MG/DL (8.5-10.1); Osmolality,Calculated 300.4 MOS/KG (273-304)
[2021-01-23 06:03] LABS: Lymphocytes 9 % (20-55); Platelet Estimate Adequate; Segmented Neutrophils 89 % (50-85); Total Cells Counted 100
[2021-01-23 07:56] VITALS: BP 110/52
[2021-01-23] MEDS ORDERED: ASCORBIC ACID 500 MG TABLET PO SCH (09:00)
[2021-01-23] MEDS: INSULIN REGULAR 100 UNIT/ML SUBCUT SCH (09:24)
[2021-01-23] MEDS: FUROSEMIDE 40 MG/4 ML VIAL IV SCH (09:25)
[2021-01-23] MEDS: buPROPion 75 MG TABLET PO SCH (09:25)
[2021-01-23] MEDS: SACUBITRIL/VALSARTAN 49-51 MG TABLET PO SCH (09:26)
[2021-01-23] MEDS: PANTOPRAZOLE 40 MG TABLET PO SCH (09:27)
[2021-01-23] MEDS: ASPIRIN EC 81 MG TABLET PO SCH (09:27)
[2021-01-23] MEDS: carvediloL 12.5 MG TABLET PO SCH (09:27)
== END 2021-01-23 11:14 | disposition home health service (06) | DRG 280 ==
LOC: N.EDINP 17:12 → N.ED 17:12 → SUATTDRO 20:26 → N.TELEN 01-19 02:14 → N.CC 01-20 14:06 → SUATTDRO 01-20 15:17 → N.5E 01-21 14:22
PROVIDERS: ADMIT Internal Medicine; ATTEND Internal Medicine